=== PATIENT | female | born 1975 | race Caucasian/White ===

== ENCOUNTER 2018-08-03 04:36 | Emergency (ER) | payer BC ==
[~2018-08-03 04:36] MED LIST: AMOX-362 PO
--- NOTE | 2018-08-03 04:39 | ER Report ---
History and Physical Time Seen By MD: 04:39 HPI/ROS CHIEF COMPLAINT: Severe left flank pain, vomiting HISTORY OF PRESENT ILLNESS: 43-year-old female presents with sudden onset of left flank pain since 3 AM. She notes mild pain since 2 PM yesterday afternoon. Patient thinks she has a kidney stone. She had a previous kidney stone 3 years ago. She denies fever, chills or dysuria. REVIEW OF SYSTEMS: Respiratory: No cough, no dyspnea. Cardiovascular: No chest pain, no palpitations. Gastrointestinal: As above Musculoskeletal: As above Allergies: Coded Allergies: No Known Drug Allergies (Unverified , 08/03/18) Home Meds Active Scripts Hydrocodone Bit/Acetaminophen (HYDROCODON-ACETAMINOPHEN 5-325) 1 Each Tablet, 1 EACH PO Q4-6H PRN for PAIN, #10 TAKE ONE TABLET BY MOUTH EVERY 4-6 HOURS NEEDED FOR PAIN Prov:PARADISE RUFF DO 08/03/18 Ondansetron (ZOFRAN ODT) 4 Mg Tab.rapdis, 4 MG PO every 6 hours PRN for NAUSEA/VOMITING, #10 TAB TAKE 1 TABLET BY MOUTH EVERY 12 HOURS Prov:PARADISE RUFF DO 08/03/18 Ciprofloxacin Hcl 500 Mg Tab (CIPRO 500 MG TAB) 500 Mg Tablet, 500 MG PO BID for infection, #14 Prov:PARADISE RUFF DO 08/03/18 Discontinued Reported Medications Amoxicillin (AMOXICILLIN) 500 Mg Capsule, 1 CAP PO Q8H, #15 CAPSULE 12/01/17 Reviewed Nurses Notes: Yes Old Medical Records Reviewed: Yes Smoking Status: Never Smoker Constitutional Vital Sign - Last 24 Hours 08/03/18 08/03/18 08/03/18 08/03/18 04:42 04:43 04:53 05:00 Temp 98.5 Pulse 78 92 Resp 20 17 B/P (MAP) 121/107 (112) 121/107 138/78 (98) 112/81 (91) Pulse Ox 99 96 O2 Delivery Room Air Nasal Cannula O2 Flow Rate 2 08/03/18 08/03/18 08/03/18 08/03/18 05:00 05:03 05:13 05:15 Pulse 64 Resp 15 B/P (MAP) 138/83 (101) 138/83 (101) 126/80 (95) Pulse Ox 98 O2 Flow Rate 2.0 08/03/18 08/03/18 05:30 05:30 Pulse 66 Resp 14 B/P (MAP) 126/80 (95) 121/75 (90) Pulse Ox 97 O2 Delivery Room Air Physical Exam Vital signs stable, afebrile, pulse ox normal General Appearance: The patient is alert, has no immediate need for airway protection and no current signs of toxicity. Moderate to severe distress, holding left flank, slightly pale appearing Eyes: Pupils equal and round no injection. Respiratory: Chest is non tender, lungs are clear to auscultation. Cardiac: regular rate and rhythm Gastrointestinal: Abdomen is soft and non tender, no masses, bowel sounds normal. Positive left CVA tenderness Musculoskeletal: Neck: Neck is supple and non tender. Extremities have full range of motion and are non tender. Skin: No rashes or lesions. DIFFERENTIAL DIAGNOSIS: After history and physical exam differential diagnosis was considered for flank pain including but not limited to musculoskeletal causes, kidney stone, pyelonephritis, shingles, and intra-abdominal causes such as diverticulitis and appendicitis. Medical Decision Making Data Points Result Diagram: 08/03/18 0448 08/03/18 0448 Laboratory Hematology Test 08/03/18 04:40 08/03/18 04:48 Urine Color Yellow Urine Clarity Cloudy Urine pH 7.0 pH (4.8-9.5) Urine Specific [place] 1.012 Urine Protein 30 mg/dL (NEGATIVE) Urine Glucose (UA) Negative mg/dL (NEGATIVE) Urine Ketones Negative mg/dL (NEGATIVE) Urine Blood Moderate (NEGATIVE) Urine Nitrite Positive (NEGATIVE) Urine Bilirubin Negative (NEGATIVE) Urine Urobilinogen Negative mg/dL (0.2-1.9) Urine Leukocyte Esterase Large (NEGATIVE) Urine RBC 25 /HPF (0-2/HPF) Urine WBC 214 /HPF (0-5/HPF) Urine WBC Clumps Few /HPF Urine Squamous Epithelial Cells None /LPF (</=FEW) Urine Transitional Epithelial Cells Many /LPF (NONE-FEW) Urine Bacteria Negative /HPF (NONE-FEW) Urine Mucus None /HPF (NONE-FEW) Red Blood Count 4.89 M/uL (4.17-5.56) Mean Corpuscular Volume 92.6 fL (80.0-96.0) Mean Corpuscular Hemoglobin 31.4 pg (26.0-33.0) Mean Corpuscular Hemoglobin Concent 33.9 g/dL (32.0-36.0) Red Cell Distribution Width 13.1 % (11.5-14.5) Mean Platelet Volume 8.3 fL (7.2-11.1) Neutrophils (%) (Auto) 70.1 % (39.4-72.5) Lymphocytes (%) (Auto) 21.5 % (17.6-49.6) Monocytes (%) (Auto) 6.9 % (4.1-12.4) Eosinophils (%) (Auto) 1.0 % (0.4-6.7) Basophils (%) (Auto) 0.5 % (0.3-1.4) Nucleated RBC Relative Count (auto) 0.0 /100WBC Neutrophils # (Auto) 6.7 K/uL (2.0-7.4) Lymphocytes # (Auto) 2.1 K/uL (1.3-3.6) Monocytes # (Auto) 0.7 K/uL (0.3-1.0) Eosinophils # (Auto) 0.1 K/uL (0.0-0.5) Basophils # (Auto) 0.0 K/uL (0.0-0.1) Nucleated RBC Absolute Count (auto) 0.00 K/uL Sodium Level 139 mmol/L (137-145) Potassium Level 3.5 mmol/L (3.5-5.0) Chloride Level 102 mmol/L (98-107) Carbon Dioxide Level 25 mmol/L (22-31) Blood Urea Nitrogen 12 mg/dl (7-18) Creatinine 0.80 mg/dl (0.52-1.04) Glomerular Filtration Rate Calc > 60.0 Random Glucose 118 mg/dl (75-110) Calcium Level 9.1 mg/dl (8.4-10.2) Total Bilirubin 0.6 mg/dl (0.2-1.3) Aspartate Amino Transf (AST/SGOT) 42 U/L (0-35) Alanine Aminotransferase (ALT/SGPT) 39 U/L (0-56) Alkaline Phosphatase 89 U/L (0-126) Total Protein 7.9 g/dl (6.3-8.2) Albumin 4.2 g/dl (3.5-5.0) Amylase Level 78 U/L (0-110) Lipase 66 U/L (23-300) Human Chorionic Gonadotropin, Qual Negative (NEGATIVE) Chemistry Test 08/03/18 04:40 08/03/18 04:48 Urine Color Yellow Urine Clarity Cloudy Urine pH 7.0 pH (4.8-9.5) Urine Specific [place] 1.012 Urine Protein 30 mg/dL (NEGATIVE) Urine Glucose (UA) Negative mg/dL (NEGATIVE) Urine Ketones Negative mg/dL (NEGATIVE) Urine Blood Moderate (NEGATIVE) Urine Nitrite Positive (NEGATIVE) Urine Bilirubin Negative (NEGATIVE) Urine Urobilinogen Negative mg/dL (0.2-1.9) Urine Leukocyte Esterase Large (NEGATIVE) Urine RBC 25 /HPF (0-2/HPF) Urine WBC 214 /HPF (0-5/HPF) Urine WBC Clumps Few /HPF Urine Squamous Epithelial Cells None /LPF (</=FEW) Urine Transitional Epithelial Cells Many /LPF (NONE-FEW) Urine Bacteria Negative /HPF (NONE-FEW) Urine Mucus None /HPF (NONE-FEW) White Blood Count 9.6 k/uL (4.5-11.0) Red Blood Count 4.89 M/uL (4.17-5.56) Hemoglobin 15.3 g/dL (12.0-16.0) Hematocrit 45.3 % (34.0-47.0) Mean Corpuscular Volume 92.6 fL (80.0-96.0) Mean Corpuscular Hemoglobin 31.4 pg (26.0-33.0) Mean Corpuscular Hemoglobin Concent 33.9 g/dL (32.0-36.0) Red Cell Distribution Width 13.1 % (11.5-14.5) Platelet Count 252 K/uL (150-450) Mean Platelet Volume 8.3 fL (7.2-11.1) Neutrophils (%) (Auto) 70.1 % (39.4-72.5) Lymphocytes (%) (Auto) 21.5 % (17.6-49.6) Monocytes (%) (Auto) 6.9 % (4.1-12.4) Eosinophils (%) (Auto) 1.0 % (0.4-6.7) Basophils (%) (Auto) 0.5 % (0.3-1.4) Nucleated RBC Relative Count (auto) 0.0 /100WBC Neutrophils # (Auto) 6.7 K/uL (2.0-7.4) Lymphocytes # (Auto) 2.1 K/uL (1.3-3.6) Monocytes # (Auto) 0.7 K/uL (0.3-1.0) Eosinophils # (Auto) 0.1 K/uL (0.0-0.5) Basophils # (Auto) 0.0 K/uL (0.0-0.1) Nucleated RBC Absolute Count (auto) 0.00 K/uL Glomerular Filtration Rate Calc > 60.0 Calcium Level 9.1 mg/dl (8.4-10.2) Total Bilirubin 0.6 mg/dl (0.2-1.3) Aspartate Amino Transf (AST/SGOT) 42 U/L (0-35) Alanine Aminotransferase (ALT/SGPT) 39 U/L (0-56) Alkaline Phosphatase 89 U/L (0-126) Total Protein 7.9 g/dl (6.3-8.2) Albumin 4.2 g/dl (3.5-5.0) Amylase Level 78 U/L (0-110) Lipase 66 U/L (23-300) Human Chorionic Gonadotropin, Qual Negative (NEGATIVE) Urinalysis Test 08/03/18 04:40 Urine Color Yellow Urine Clarity Cloudy Urine pH 7.0 pH (4.8-9.5) Urine Specific [place] 1.012 Urine Protein 30 mg/dL (NEGATIVE) Urine Glucose (UA) Negative mg/dL (NEGATIVE) Urine Ketones Negative mg/dL (NEGATIVE) Urine Blood Moderate (NEGATIVE) Urine Nitrite Positive (NEGATIVE) Urine Bilirubin Negative (NEGATIVE) Urine Urobilinogen Negative mg/dL (0.2-1.9) Urine Leukocyte Esterase Large (NEGATIVE) Urine RBC 25 /HPF (0-2/HPF) Urine WBC 214 /HPF (0-5/HPF) Urine WBC Clumps Few /HPF Urine Squamous Epithelial Cells None /LPF (</=FEW) Urine Transitional Epithelial Cells Many /LPF (NONE-FEW) Urine Bacteria Negative /HPF (NONE-FEW) Urine Mucus None /HPF (NONE-FEW) ED Course/Re-evaluation Clinical Indication for ER IV: Hydration, IV Access ED Course Patient was admitted to an examination room. H&P was done. The differential diagnoses was considered. Patient was several days of dysuria. Now she has severe left flank pain. She is afebrile. Her white blood cell counts normal. Her urinalysis suggest urinary tract infection as opposed to kidney stones. Patient's treated with Rocephin 1 g IV, Cipro 500 mg by mouth. She'll be discharged home with Zofran, hydrocodone and Cipro by mouth. She is advised to increase her fluid intake. She is advised to follow-up with primary care if unimproved in 3-5 days. A urinary cultures ordered. Decision to Disposition Date: Aug 03, 2018 Decision to Disposition Time: 05:17 Depart Departure Latest Vital Signs Vital Signs Date Time Temp Pulse Resp B/P (MAP) Pulse Ox O2 Delivery O2 Flow Rate FiO2 08/03/18 05:30 121/75 (90) 08/03/18 05:30 66 14 97 Room Air 08/03/18 05:03 2.0 08/03/18 04:43 98.5 Impression: Primary Impression: Pyelonephritis Condition: Improved Disposition: HOME OR SELF-CARE Referrals: LISANDRO DUMONT MD New Scripts Hydrocodone Bit/Acetaminophen (HYDROCODON-ACETAMINOPHEN 5-325) 1 Each Tablet 1 EACH PO Q4-6H PRN for PAIN, #10 TAKE ONE TABLET BY MOUTH EVERY 4-6 HOURS NEEDED FOR PAIN Prov: PARADISE RUFF DO 08/03/18 Ondansetron (ZOFRAN ODT) 4 Mg Tab.rapdis 4 MG PO every 6 hours PRN for NAUSEA/VOMITING, #10 TAB TAKE 1 TABLET BY MOUTH EVERY 12 HOURS Prov: PARADISE RUFF DO 08/03/18 Ciprofloxacin Hcl 500 Mg Tab (CIPRO 500 MG TAB) 500 Mg Tablet 500 MG PO BID for infection, #14 Prov: PARADISE RUFF DO 08/03/18 Patient Instructions: Kidney Infection (ED) Additional Instructions: Take ibuprofen 200 mg 3-4 tablets 3 times a day Drink plenty of fluids Make sure to finish all of your antibiotics Follow-up with your primary care if unimproved in 3-5 days PARADISE RUFF DO Aug 03, 2018 04:39
[2018-08-03] MEDS ORDERED: NS(*) 0.9% 1000 ML BAG 1,000 ML IV ONE (04:44)
[2018-08-03] MEDS ORDERED: HYDROMORPHONE HCL 1 MG/ML SYRINGE IVP ONE (04:45)
[2018-08-03] MEDS ORDERED: KETOROLAC 30 MG/ML VIAL IVP ONE (04:45)
[2018-08-03] MEDS ORDERED: ONDANSETRON 4 MG/2 ML VIAL IVP ONE (04:45)
[2018-08-03 05:00] LABS: PLATELET COUNT, AUTOMATED 252 K/uL (150-450)
[2018-08-03] MEDS ORDERED: cefTRIAXone 1 GM VIAL IVP ONE (05:15)
[2018-08-03] MEDS ORDERED: CIPROFLOXACIN 500 MG TAB PO ONE (05:15)
[2018-08-03] MEDS ORDERED: ACET/HYDROC 5/325MG TH ER ONLY 2 TAB/BOTTLE PO ONE (05:15)
[2018-08-03] MEDS ORDERED: ONDANSETRON 4 MG ODT TH SL ONE (05:15)
[2018-08-03] MEDS ORDERED: LOR5/325 PO (05:18)
[2018-08-03] MEDS ORDERED: ONDA4TAB PO (05:18)
[2018-08-03] MEDS ORDERED: CIPR-344 PO (05:18)
[2018-08-03 05:59] VITALS: BP 118/71
== END 2018-08-03 06:06 | disposition home or self-care (01) ==
LOC: ER 05:00
DX: N12 Tubulo-interstitial nephritis, not specified as acute or chronic (principal)
CPT/HCPCS: 81001; 82150; 83690; 84703; 85025; 87088; 96361; 96374; 96375; 99284; J0696; J1170; J1885; J2405; J7030; S0119; 82040; 82247; 82310; 82374; 82435; 82565; 82947; 84075; 84132; 84155; 84295; 84450; 84460; 84520

== ENCOUNTER → 2018-08-07 | Outpatient (CLI) | payer BC ==
[~2018-08-07] MED LIST changes: +CIPR-344 PO; +LOR5/325 PO; +ONDA4TAB PO
--- NOTE | 2018-08-07 17:03 | RADIOLOGY IMAGING REPORT ---
FACILITY: [facility] [place] PATIENT NAME: Yanni Cameron : 1975 MR: [id number] V: [id number] EXAM DATE: [id number] ORDERING PHYSICIAN: DUSTIN MARLEY TECHNOLOGIST: Location: [facility] Patient: Yanni Cameron : 1975 Visit/Account:[id number] Date of Sevice: 08/07/2018 ABDOMEN/PELVIS W/O CONTRAST HISTORY: Left flank pain TECHNIQUE: Axial images were obtained through the abdomen and pelvis without intravenous contrast . One of the following dose optimization techniques was utilized in the performance of this exam: autom ated exposure control; adjustment of the mA and/or kv according to patient size; or use of iterative reconstruction technique. Specific details can be referenced in the facility's radiology CT exam oper ational policy. CONTRAST: None COMPARISON: None. FINDINGS: Visualized lung bases: Negative. Hepatobiliary: Negative. Spleen: Negative. Adrenals: Negative. Pancreas: Negative. Kidneys/ureters/bladder: 1-2 mm nonobstructing left lower pole renal calculus. No right renal calcu roney. No bilateral ureteral calculus or bladder calculus. No hydronephrosis. Bowel/peritoneum/mesentery: Normal appendix. No bowel obstruction, free air or ascites. Moderate c olonic stool. No acute inflammatory change surrounding the colon. Vessels: Negative. Lymph nodes: Negative. Pelvic genitourinary: Endometrium measures 15 mm. Bones/body wall: Negative. Other findings: None significant IMPRESSION: 1. Punctate nonobstructing left renal calculus. No ureteral calculus or hydronephrosis. 2. Endometrium measures 15 mm. Recommend correlation with menstruation status. Report Dictated By: Josh Magana MD at 08/07/2018 4:48 PM Report E-Signed By: Josh Magana MD at 08/07/2018 4:59 PM [id number]
== END ==
LOC: CT 16:07
PROVIDERS: ATTEND Urology
DX: N12 Tubulo-interstitial nephritis, not specified as acute or chronic (principal); N20.0 Calculus of kidney
CPT/HCPCS: 74176

== ENCOUNTER → 2018-08-07 | Outpatient (CLI) | payer BC | LOC: LAB 10:08 | PROVIDERS: ATTEND Urology | DX: N12 Tubulo-interstitial nephritis, not specified as acute or chronic (principal) | CPT/HCPCS: 81001 ==